=== PATIENT | female | born 1965 | race Caucasian/White ===

== ENCOUNTER 2016-07-28 17:33 | Emergency (ER) | payer MEDICARE, MEDICAID ==
[2016-07-28 20:04] LABS: Red Blood Count 3.99 10^6/ul (4.0-5.4); White Blood Count 8.6 10^3/ul (3.5-10.8)
[2016-07-28 20:05] LABS: Hematocrit 39 % (35-47); Mean Corpuscular HGB Conc 33 g/dl (31-36); Mean Corpuscular Hemoglobin 33 pg (27-31); Mean Corpuscular Volume 99 fL (80-97); Mean Platelet Volume 8 um3 (7.4-10.4); Red Cell Distribution Width 16 % (10.5-15)
[2016-07-28] MEDS ORDERED: Midazolam* 1 MG/ML 10 ML VIAL (10 MG) IV ONE (20:08)
[2016-07-28] MEDS ORDERED: fentaNYL* 50 MCG/ML 2 ML VIAL (100 MCG VIAL) IV SLOW PU ONE (20:09)
[2016-07-28 20:15] LABS: Albumin 3.6 g/dL (3.2-5.2); BUN/Creatinine Ratio 29.8 (8-20); Calcium 9.2 mg/dL (8.6-10.3); EGFR Non-African American 112.7 (>60); Globulin 3.6 g/dL (2-4); Potassium 4.7 mmol/L (3.5-5.0); Total Bilirubin 0.2 mg/dL (0.2-1.0); Total Protein 7.2 g/dL (6.4-8.9)
[2016-07-28 20:25] LABS: Carbamazepine 6.8 mcg/mL (4.0-12.0)
[2016-07-28] MEDS ORDERED: ceFAZolin 2 GM PREMIX (*) 2 GM/50 ML BAG IVPB ONE ×2 (20:38→20:40)
[2016-07-28 20:45] LABS: Prolactin 28.2 ng/mL (1.0-25.0)
--- NOTE | 2016-07-28 21:10 | ED ---
Marco Barrios Adam, scribed for Nazario Beckham MD on 07/28/16 at 1913 . Skin Complaint - HPI Summary HPI Summary: A 51 y/o female presents to the ED with two caretakers (patient is ) with an abscess over her right eye since 07/26/16. Caretakers state patient was seen on 07/26/16 and given antibiotics. Today, the abscess drained slightly. They deny fever , hypotension, or tachycardia and report patient acting appropriately. 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 Caretakers report a history of facial abscesses. - History of Current Complaint Chief Complaint: EDRashSkinAbscess Time Seen by Provider: 07/28/16 18:22 Stated Complaint: ASCESS ON RIGHT EYELID Hx Obtained From: Family/Home School Liaison Officer Onset/Duration: Started Days Ago - 07/26/16, Still Present Timing: Constant Onset Severity: Moderate Current Severity: Moderate Skin Location: Discrete, Face - Above right eye Character: Swelling, Redness, Raised Aggravating Symptom(s): Touch Alleviating Symptom(s): Nothing Related History: Other: - Hx of facial abscess - Additional Pertinent History Primary Care Physician: [id number] - Allergy/Home Medications Allergies/Adverse Reactions: Allergies Allergy/AdvReac Type Severity Reaction Status Date / Time Corticosteroids Allergy Agitation Verified 06/06/16 08:04 PMH/Surg Hx/FS Hx/Imm Hx Endocrine/Hematology History: Reports: Hx Thyroid Disease, Other Endocrine/ Hematological Disorders - hyponatremia Respiratory History: Reports: Hx Seasonal Allergies GI History: Reports: Hx Gastroesophageal Reflux Disease, Other GI Disorders - constipation History: Denies: Other Problems/Disorders - Correa, incontinent Sensory History: Reports: Hx Cataracts, Hx Legally Blind, Other Sensory Impairments Denies: Hx Glaucoma Opthamlomology History: Reports: Hx Cataracts, Hx Legally Blind, Other Sensory Impairments Denies: Hx Glaucoma Neurological History: Reports: Hx Developmental Delay - Down syndrome, intellectual disability, Hx Seizures - Simple partial Psychiatric History: Reports: Hx Schizophrenia, Hx of Violent Episodes Against Others, Other Psychiatric Issues/Disorders - impulse control disorder Denies: Hx Eating Disorder Infectious Disease History: No Infectious Disease History: Reports: Hx of Known/Suspected MRSA Denies: Hx Clostridium Difficile, Hx Hepatitis, Hx Human Immunodeficiency Virus (HIV), Hx Shingles, Hx Tuberculosis, Hx Known/Suspected VRE, Traveled Outside the [place] in Last 30 Days - Family History Known Family History: Positive: Unknown - nonverbal pt Family History: Pt is non-verbal - Social History Alcohol Use: None Hx Substance Use: No Substance Use Type: Reports: None Hx Tobacco Use: No Smoking Status (MU): Never Smoked Tobacco - Additional Comments History Additional Comments: Hx facial abscesses Review of Systems Constitutional: Negative Negative: Fever Eyes: Negative ENT: Negative Cardiovascular: Negative Positive: Other - Negative: Tachycardia, hypotension Respiratory: Negative Gastrointestinal: Negative Genitourinary: Negative Musculoskeletal: Negative Positive: Other - Abscess above right eye Neurological: Negative Psychological: Normal All Other Systems Reviewed And Are Negative: Yes Physical Exam - Summary Physical Exam Summary: The patient is well-nourished in no acute distress and in no acute pain. The skin is warm and dry and skin color reflects adequate perfusion. Small abscess on right eyelid/forehead. Erythema around right eye. Erythema on maxillary but no heat. HEENT: The head is normocephalic and atraumatic. The pupils are equal and reactive. The conjunctivae are clear and without drainage. Nares are patent and without drainage. Mouth reveals moist mucous membranes and the throat is without erythema and exudate. The external ears are intact. The ear canals are patent and without drainage. The tympanic membranes are intact. Neck is supple with full range of motion and non-tender. There are no carotid bruits. There is no neck vein distension. Respiratory: Chest is non-tender. Lungs are clear to auscultation and breath sounds are symmetrical and equal. Cardiovascular: Hear is regular rate and rhythm. There is no murmur or rub auscultated. There is no peripheral edema and pulses are symmetrical and equal. Abdomen: The abdomen is soft and non-tender. There are normal bowel sounds heard in all four quadrants and there is no organomegaly palpated. Musculoskeletal: There is no back pain noted. Extremities are non-tender with full range of motion. There is good capillary refill. There is no peripheral edema or calf tenderness elicited. Neurological: Patient is alert. The patient has symmetrical motor strength in all four extremities. Cranial nerves are grossly intact. Deep tendon reflexes are symmetrical and equal in all four extremities. Psychiatric: The patient is uncooperative for exam. Vital Signs On Initial Exam: Initial Vitals Temp Pulse Resp BP Pulse Ox 97.2 F 68 20 109/41 96 07/28/16 17:38 07/28/16 17:38 07/28/16 17:38 07/28/16 17:38 07/28/16 17:38 Procedures - Procedure Summary Procedure Summary: Conscious sedation involved 5 mg Versed and 75 mcg Fentanyl. Small incision made on right eyebrow. Unable to adequately explore the wound due to excess scar tissue. Cultured wound and sent to lab. - Incision and Drainage Site: Right eye brow Anesthesia: Lidocaine - 4 CC of 2% with epi Instrument(s): Scalpel - #11 blade. Drained 1 ml of purulent debris, Needle Diagnostics - Vital Signs Vital Signs Temp Pulse Resp BP Pulse Ox 07/28/16 17:38 97.2 F 68 20 109/41 96 - Laboratory Lab Results: Lab Results 07/28/16 07/28/16 Range/Units 19:45 19:45 WBC 8.6 (3.5-10.8) 10^3/ul RBC 3.99 L (4.0-5.4) 10^6/ul Hgb 13.0 (12.0-16.0) g/dl Hct 39 (35-47) % MCV 99 H (80-97) fL MCH 33 H (27-31) pg MCHC 33 (31-36) g/dl RDW 16 H (10.5-15) % Plt Count 347 (150-450) 10^3/ul MPV 8 (7.4-10.4) um3 Neut % (Auto) 76.6 (38-83) % Lymph % (Auto) 15.3 L (25-47) % [place] % (Auto) 6.3 (1-9) % Eos % (Auto) 0.6 (0-6) % Baso % (Auto) 1.2 (0-2) % Absolute Neuts (auto) 6.6 (1.5-7.7) 10^3/ul Absolute Lymphs (auto) 1.3 (1.0-4.8) 10^3/ul Absolute Monos (auto) 0.5 (0-0.8) 10^3/ul Absolute Eos (auto) 0.1 (0-0.6) 10^3/ul Absolute Basos (auto) 0.1 (0-0.2) 10^3/ul Absolute Nucleated RBC 0.01 10^3/ul Nucleated RBC % 0.1 Sodium 127 L (133-145) mmol/L Potassium 4.7 (3.5-5.0) mmol/L Chloride 97 L (101-111) mmol/L Carbon Dioxide 29 (22-32) mmol/L Anion Gap 1 L (2-11) mmol/L BUN 17 (6-24) mg/dL Creatinine 0.57 (0.51-0.95) mg/dL Est GFR ( Amer) 145.0 (>60) Est GFR (Non-Af Amer) 112.7 (>60) BUN/Creatinine Ratio 29.8 H (8-20) Glucose 90 (70-100) mg/dL Calcium 9.2 (8.6-10.3) mg/dL Total Bilirubin 0.20 (0.2-1.0) mg/dL AST 20 (13-39) U/L ALT 17 (7-52) U/L Alkaline Phosphatase 158 H (34-104) U/L Total Protein 7.2 (6.4-8.9) g/dL Albumin 3.6 (3.2-5.2) g/dL Globulin 3.6 (2-4) g/dL Albumin/Globulin Ratio 1.0 (1-3) Prolactin 28.2 H (1.0-25.0) ng/mL Carbamazepine 6.8 (4.0-12.0) mcg/mL Result Diagrams: 07/28/16 19:45 07/28/16 19:45 Lab Statement: Any lab studies that have been ordered have been reviewed, and results considered in the medical decision making process. Re-Evaluation - Re-Evaluation First Eval Re-Evaluation Time: 21:00 Change: Improved Comment: Patient is back to baseline after conscious sedation and will be discharged home. Course/Dx - Course Course Of Treatment: Pt not cooperative for exam. Will do procedural sedation for the incision and drainage of her facial abscess. - Differential Diagnoses - Skin Complaint Differential Diagnoses: Abscess, Cellulitis - Diagnoses Provider Diagnoses: Abscess, left eyebrow with I&D Discharge - Discharge Plan Condition: Stable Disposition: HOME Referrals: Jones Cardona MD [Primary Care Provider] - 1 Day Additional Instructions: Continue Bactrim and follow up with PCP in one day. The documentation as recorded by the scribeMarco Adam accurately reflects the service I personally performed and the decisions made by me, Nazario Beckham MD.
[2016-07-28 21:35] VITALS: BP 102/43
== END 2016-07-28 21:34 | disposition home or self-care (01) ==
LOC: ED 17:33
DX: L02.01 Cutaneous abscess of face (principal)
CPT/HCPCS: 10060; 36415; 80053; 80156; 80175; 84146; 85025; 87070; 87077; 87186; 87205; 96365; 96375; 99283; J0690; J2250; J3010